=== PATIENT | male | born 1955 | race Asian ===

== ENCOUNTER 2017-04-28 21:08 | Emergency (ER) | payer BC ==
[~2017-04-28] VITALS: Ht 167.6 cm; Wt 86.2 kg
[2017-04-28 21:35] VITALS: BP_SYST 161
--- NOTE | 2017-04-28 21:35 | NUR ---
Patient triaged and placed in waiting room. VSS and patient appears in no acute distress at this time. Accompanied by family, awaiting available bed, and MD notified of need for MSE.
--- NOTE | 2017-04-28 21:40 | NUR ---
aware of VS
--- NOTE | 2017-04-29 00:01 | NUR ---
Patient to ER bed 1 to gown for evaluation. Side rails up. Report given to Miguelito BLANCO.
--- NOTE | 2017-04-29 00:10 | NUR ---
Prior to bed placement, patient stated having cramping pain to left lower quadrant of abdomen since yesterday, stated pain was radiating to left lower back. Pt denies pain at this time, states having nausea. Patient denies vomiting and diarrhea. Pt denies any other complaints at this time.
--- NOTE | 2017-04-29 00:20 | NUR ---
ER Dr. Carbajal at bedside examining patient.
--- NOTE | 2017-04-29 01:15 | NUR ---
Notified MD of BP 156/92, no changes to orders per MD. Will continue to monitor pt.
[2017-04-29 01:17] LABS: BASOPHILS % (AUTO) 0.3 % (0.0-2.0); EOSINOPHILS % (AUTO) 0.1 % (0.0-4.0); HEMATOCRIT 47.6 % (36-54); HEMOGLOBIN 15.6 g/dL (14.0-18.0); LYMPHOCYTES % (AUTO) 20.7 % (20.5-51.5); MEAN CORPUSCULAR HEMOGLOBIN 30 pg (27-31); MEAN CORPUSCULAR HGB CONC 33 % (32-36); MEAN CORPUSCULAR VOLUME 90 fL (79.0-98.0); MONOCYTES # (AUTO) 0.4 K/uL (0.0-1.0); MONOCYTES % (AUTO) 4.3 % (1.7-9.3); NEUTROPHILS # (AUTO) 7.4 K/uL (1.8-7.7); NEUTROPHILS % (AUTO) 74.6 % (40.0-70.0); PLATELET COUNT (AUTO) 279 K/uL (130-430); RED BLOOD CELL COUNT(AUTO) 5.27 MIL/uL (4.2-6.2); RED CELL DISTRIBUTION WIDTH 12.9 % (9.0-15.0); WHITE BLOOD COUNT (AUTO) 9.8 K/uL (4.8-10.8)
[2017-04-29 01:23] LABS: ANION GAP 8 (5-15); CALCIUM 9.1 mg/dL (8.4-11.0); CHLORIDE 105 mmol/L (98-107); CREATININE 1.02 mg/dL (0.55-1.30); GLUCOSE 138 mg/dL (70-99); POTASSIUM 4.5 mmol/L (3.5-5.1); SODIUM SERUM 143 mmol/L (136-145); UREA NITROGEN, BLOOD 15 mg/dL (8-21)
[2017-04-29 01:24] LABS: GFR AFRICAN AMERICAN 96 mL/min (>90); PROTHROMBIN TIME 10.4 SECS (9.5-12.5)
[2017-04-29 01:31] LABS: ALANINE AMINOTRANSFERASE 60 U/L (12-78); ALBUMIN 3.9 g/dL (3.4-4.8); AMYLASE 61 U/L (0-100); ASPARTATE AMINOTRANSFERASE 37 U/L (10-37); LIPASE 193 U/L (73-393); TOTAL BILIRUBIN 0.6 mg/dL (0.0-1.0)
--- NOTE | 2017-04-29 02:01 | NUR ---
Patient stable, no signs of distress noted. BP 151/90, MD notified. No changes to orders per MD.
[2017-04-29 02:10] LABS: BILIRUBIN,URINE NEGATIVE (NEGATIVE); CLARITY/URINE CLEAR (CLEAR); COLOR,URINE YELLOW (YELLOW); GLUCOSE,URINE NEGATIVE (NEGATIVE); KETONES,URINE NEGATIVE (NEGATIVE); LEUKOCYTE ESTERASE ,URINE NEGATIVE (NEGATIVE); NITRITE, URINE NEGATIVE (NEGATIVE); PROTEIN URINE NEGATIVE (NEGATIVE); UROBILINOGEN,URINE 0.2 (0.2-1.0)
[2017-04-29 02:11] LABS: BLOOD, URINE TRACE (NEGATIVE)
[2017-04-29 02:19] LABS: BACTERIA,URINE FEW /HPF (None Seen); RBC,URINE 0-3 /HPF (0-3); WBC,URINE 0-3 /HPF (0-3)
[2017-04-29 02:45] VITALS: BP_SYST 142
--- NOTE | 2017-04-29 02:45 | NUR ---
Patient given written and verbal discharge instructions and verbalizes understanding. ER MD discussed with patient the results and treatment provided. Patient in stable condition. ID arm band removed. Rx of prilosec given. Patient educated on pain management and to follow up with PMD. Pain Scale 0/10. Opportunity for questions provided and answered.
== END 2017-04-29 02:45 | disposition home or self-care (01) ==
LOC: SED 21:08
DX: R10.13 Epigastric pain (principal)
CPT/HCPCS: 36415; 80053; 81000-TC; 82150-TC; 83690-TC; 84484; 85025; 85610-TC; 93005; 99285